=== PATIENT | male | born 1980 | race Two or more races ===

== ENCOUNTER 2019-12-02 11:29 | Emergency (ER) | payer MEDICAID ==
[~2019-12-02] VITALS: Ht 180.3 cm; Wt 72.6 kg
--- NOTE | 2019-12-02 12:35 | NUR ---
PT SELF PRESENTS TO ED. AMBULATORY TO ER BED 13 C/O HEARING VOICES. SUICIDAL W/ PLAN TO OVERDOSE ON "DRUGS." PT GOWNED. STABLE VITALS. SITTER AT BEDSIDE. AWAITING MD CAMACHO.
--- NOTE | 2019-12-02 12:55 | NUR ---
DR DANIELS AT BEDSIDE FOR EVAL.
--- NOTE | 2019-12-02 13:25 | NUR ---
SHIPPING TECHNICIAN AT BEDSIDE FOR BLOOD DRAW.
[2019-12-02 13:42] LABS: BASOPHILS % (AUTO) 0.5 % (0.0-2.0); EOSINOPHILS % (AUTO) 0.6 % (0.0-6.0); HEMATOCRIT 49 % (39-51); HEMOGLOBIN 16.4 g/dL (13.5-17.5); LYMPHOCYTES # (AUTO) 2.3 /CMM (0.8-4.8); LYMPHOCYTES % (AUTO) 25.4 % (20.0-44.0); MEAN CORPUSCULAR HGB CONC 33 g/dl (31.0-36.0); MEAN CORPUSCULAR VOLUME 95 fL (80-96); MONOCYTES # (AUTO) 1.1 /CMM (0.1-1.30); MONOCYTES % (AUTO) 12.4 % (2.0-12.0); NEUTROPHILS # (AUTO) 5.6 /CMM (1.8-8.9); NEUTROPHILS % (AUTO) 61.1 % (43.0-81.0); PLATELET COUNT (AUTO) 353 /CMM (150-450); RED BLOOD CELL COUNT(AUTO) 5.16 MIL/uL (4.5-6.0); WHITE BLOOD COUNT (AUTO) 9.2 K/uL (4.3-11.0)
[2019-12-02 14:20] LABS: APPEARANCE,URINE CLEAR (CLEAR); BILIRUBIN,URINE NEGATIVE (NEGATIVE); BLOOD, URINE MODERATE Ery/uL (NEGATIVE); COLOR,URINE YELLOW (YELLOW); KETONES,URINE 15 (NEGATIVE); LEUKOCYTE ESTERASE ,URINE NEGATIVE (NEGATIVE); NITRITE, URINE NEGATIVE (NEGATIVE); PROTEIN,URINE NEGATIVE (NEGATIVE); UGLUCOSE NEGATIVE (NEGATIVE); UROBILINOGEN,URINE 0.2 EU/dL (0.2)
[2019-12-02 15:04] LABS: BACTERIA,URINE RARE /HPF (None Seen); MUCUS,URINE Few /LPF (None Seen); RBC,URINE 0-2 /HPF (0-2); WBC,URINE 0-2 /HPF (0-3)
[2019-12-02 15:28] LABS: ALANINE AMINOTRANSFERASE 31 U/L (12-78); ALBUMIN 4.3 g/dL (3.4-5.0); ALCOHOL, BLOOD < 3 mg/dL (0-0); ALKALINE PHOSPHATASE 95 U/L (46-116); ASPARTATE AMINOTRANSFERASE 28 U/L (15-37); BILIRUBIN,DIRECT 0.2 mg/dL (0.0-0.2); BILIRUBIN,TOTAL 1.1 mg/dL (0.2-1.0); CALCIUM, SERUM 9.7 mg/dL (8.5-10.1); CARBON DIOXIDE 25 mmol/L (21-32); CHLORIDE 99 mmol/L (98-107); CREATININE 1.1 mg/dL (0.6-1.3); GLUCOSE 78 mg/dL (74-106); POTASSIUM 4.7 mmol/L (3.5-5.1); SALICYLATE 0.8 mg/dL (2.8-20.0); SODIUM SERUM 138 mmol/L (136-145); TOTAL PROTEIN, SERUM 8.3 g/dL (6.4-8.2); UREA NITROGEN, BLOOD 12 mg/dL (7-18)
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
--- NOTE | 2019-12-02 15:41 | NUR ---
SW provided the following resources to the patient. Substance Abuse resources provided included: [facility] Substance Abuse Self-Helpline ([facility]) ; [facility]LP [address] [facility] [place] [id number] ; [facility] [place] [address] [facility] [address] ; [facility] [address] [place] [facility] [phone] ; [facility] [address] [facility] [phone] ; [facility] [address] [place] [facility] [phone] ; [facility] [address] [facility] [phone] ; [facility] Substance Abuse Helpline([facility])-[facility] ; [facility] ; [facility] [place]; Cri-Help Index; [facility] [place]; [facility] [place]; [facility] [place]; [facility] [place]; [facility], [facility] [place]; Alcoholics Anonymous -SFV; Rc-Sbvj-Jaabtpq ; Marijuana Anonymous -SFV; Narcotics Anonymous www.na.org. Year-round shelters : [facility] [address] [place] [address] ; [facility] [address] [place] [address]; [facility] [address] [facility] [address] Hygiene: [facility]: [address] Eastern ; [facility] [address] [facility] ; [facility] [address] [place] . Food Resources: [facility] at [facility]- [address] [place]; Meet Each Need wit [facility] ([facility]) [address] [address]; [facility] [address] [facility]; [facility] [address] [facility]. Mental Health resources provided: [facility] [address] [place] [address] ; [facility] [address] [facility] [address], [place] [address] ; Myesha Nicole [facility] [address] [place] [address] ; [facility] [address] [place] [address]
--- NOTE | 2019-12-02 16:51 | NUR ---
PER GYPSY, AWAITING INSURANCE INFO. SO PATIENT CAN BE TRANSFERRED TO [facility].
--- NOTE | 2019-12-02 19:49 | NUR ---
lab called regarding negative covid result.
--- NOTE | 2019-12-02 21:50 | NUR ---
PT PROVIDED W/ FOOD
--- NOTE | 2019-12-02 22:43 | NUR ---
CLINICAL FAXED TO [facility] INTAKE FOR VOLUNTARY ADMISSION.
--- NOTE | 2019-12-03 01:00 | NUR ---
PT AMBULATED TO THE RESTROOM
--- NOTE | 2019-12-03 03:50 | NUR ---
PT RESTING COMFORTABLY IN BED. VSS. NO ACUTE DISTRESS NOTED
--- NOTE | 2019-12-03 05:41 | NUR ---
Call from [facility] Intake. Pt accepted at [facility] by Dr Lua. [address] . # for report [phone]
--- NOTE | 2019-12-03 05:48 | NUR ---
REPORT GIVEN TO NUVIA JOHANSEN RN FOR LUCY
--- NOTE | 2019-12-03 05:53 | NUR ---
[facility] 0800 ETA
--- NOTE | 2019-12-03 07:12 | NUR ---
PT RESTING COMFORTABLY IN BED. VSS. NO ACUTE DISTRESS NOTED. WILL CONTINUE TO MONITOR
--- NOTE | 2019-12-03 08:15 | NUR ---
REPORT GIVEN TO EMT FOR PT TRANSFER TO [facility].
[2019-12-03 08:18] VITALS: BP 121/73
== END 2019-12-03 08:36 ==
LOC: ER 11:33
DX: F29 Unspecified psychosis not due to a substance or known physiological condition (principal); R45.851 Suicidal ideations; Z82.49 Family history of ischemic heart disease and other diseases of the circulatory system; Z59.0 Homelessness; Z20.828 Contact with and (suspected) exposure to other viral communicable diseases
CPT/HCPCS: 36415; 80048; 80076; 80305; 80307; 80329; 81001; 85025; 87426; 99285; C9803; G0480; 81000-TC